=== PATIENT | female | born 1950 | race Caucasian/White ===

== ENCOUNTER 2018-04-19 13:00 | Emergency (ER) | payer MEDICARE ==
[~2018-04-19] VITALS: Ht 157.5 cm; Wt 72.6 kg
[~2018-04-19 13:00] MED LIST: AMLODIPINE BESYL5 MG PO; ASPIRIN81 MG PO; ATORVASTATIN CA20 MG PO; CLOPIDOGREL75 MG PO; GLYBURIDE-METF1 EACH PO; HUMALOG100 UNIT/1 SQ; KEPPRA500 MG PO; LANTUS100 UNITS/ SQ; LEVOTHYROXINE50 MCG PO; LISINOPRIL10 MG PO; PAROXETINE HCL40 MG PO; WARFARIN SODIUM4 MG PO
--- OUTSIDE RECORDS SUMMARY | 2018-04-19 13:03 | XMS REPORT | Clinical Summary ---
Author Author MARTIN [facility] Organization [facility] Address Unknown Phone Unavailable Care Team Providers Care Vascular Technologist Name Role Phone Ramiro Chacon MD PCP Unavailable Jorge Guillory Unavailable Allergies Comments Active Allergy Reactions Severity Noted Date Ofloxacin 03/03/2015 Penicillins 03/03/2015 Medications End Date Status Medication Sig Dispensed Refills Start Date Active amLODIPine (NORVASC) 5 MG Take 2 60 tablet 0 tablet tablets (10 6 mg total) by mouth daily. Active aspirin 81 MG EC tablet Take 1 tablet 30 tablet 0 (81 mg total) 6 by mouth daily. Active atorvastatin (LIPITOR) 80 Take 1 tablet 30 tablet 0 MG tablet (80 mg total) 6 by mouth daily. Active insulin glargine (LANTUS) Inject 36 10 mL 0 100 unit/mL injection Units 6 subcutaneousl y nightly Use as directed. Active insulin lispro (HUMALOG) Inject 8 10 mL 0 100 unit/mL injection Units 6 subcutaneousl y 3 (three) times daily before meals. Active levETIRAcetam (KEPPRA) Take 1 tablet 60 tablet 0 500 MG tablet (500 mg 6 total) by mouth 2 (two) times daily. Active levothyroxine (SYNTHROID, Take 1 tablet 30 tablet 0 LEVOTHROID) 50 MCG tablet (50 mcg 6 total) by mouth daily. Active pantoprazole (PROTONIX) Take 1 tablet 30 tablet 0 40 MG tablet (40 mg total) 6 by mouth daily. Active PARoxetine (PAXIL) 40 MG Take 1 tablet 30 tablet 0 tablet (40 mg total) 6 by mouth every morning. Active warfarin (COUMADIN) 5 MG Take 1 tablet 30 tablet 0 tablet (5 mg total) 6 by mouth daily. Active Problems Problem Noted Date MR (mitral regurgitation) 01/03/2016 Mitral valve disease, rheumatic 01/03/2016 Essential hypertension 12/29/2015 Coronary artery disease involving [place] coronary artery of [place] heart 12/29/2015 without angina pectoris Severe mitral valve stenosis 12/15/2015 Seizure disorder 12/15/2015 Type 2 diabetes mellitus with complication 12/15/2015 CAD in [place] artery 12/15/2015 Factor V Leiden mutation (HCC), H/O 03/03/2015 CKD (chronic kidney disease) stage 2, GFR 60-89 ml/min, H/O 03/03/2015 Microcytic hypochromic anemia 03/03/2015 ALEJANDRO (obstructive sleep apnea), H/O 03/03/2015 Vascular dementia, H/O 03/03/2015 Cerebral infarction 03/03/2015 Overview: UPDATED BY ICD10 SNOMED/IMO UPDATES Hemiplegia 03/03/2015 Overview: UPDATED BY ICD10 SNOMED/IMO UPDATES Rheumatic heart disease, H/O 03/03/2015 Moderate to severe mitral stenosis per 2012 Echo, H/O 03/03/2015 Diabetes mellitus 03/03/2015 Hematoma from Coumadin, H/O 03/03/2015 Hypothyroidism, H/O 03/03/2015 Expressive aphasia, H/O 03/03/2015 Anemia 03/03/2015 Family History Medical History Relation Name Comments Diabetes Brother Diabetes Brother Diabetes Brother Diabetes Brother Diabetes Father Diabetes Sister Diabetes Sister Relation Name Status Comments Brother Brother Brother Brother Father Sister Sister Social History Date Tobacco Use Types Packs/Day Years Used Quit: 06/10/2011 Former Smoker Alcohol Use Drinks/Week oz/Week Comments No Sex Assigned at Date Recorded Not on file Industry Job Start Date Occupation Not on file Not on file Not on file Travel End Travel History Travel Start No recent travel history available. Last Filed Vital Signs Not on file Plan of Treatment Health Maintenance Due Date Last Done Comments INFLUENZA VACCINE 03/03/2018 Implants Device Identifier Shelf Expiration Date Model / Serial / Lot Implanted Type Area Manufactur er 08/31/2020 08.501.001.20S / / [id number] Sternal Zipfix Ndl Strl Cardiovasc N/A: Sternum SYNTHES:SY 08.501.001.20s - [id number] ular NTHES [place] Implanted: Qty: 1 on 01/03/2016 by Sami Waters MD 02/29/2020 [id number] / / [id number] Patch Vasc [place] 1.65mm 1x6in Graft/Patc N/A: Chest CR 346004 - [id number] BARD:PERIP Implanted: Qty: 1 on 01/03/2016 by HERAL Sami Wang MD 11/30/2018 [id number] / [id number] / Valve Mitrl Epic 27mm [id number] - Valves N/A: Heart ST [facility]Z [id number] MED:CARDIA Implanted: Qty: 1 on 01/03/2016 by C SURG Sami Waters MD Results Not on fileafter 04/18/2017 Insurance Payer Benefit Subscriber ID Type Phone Address Plan / [facility] Advance Directives For more information, please contact: [facility] [address] [place] [phone] Date Inactivated Comments Code Status Date Activated 02/02/2016 2:17 PM Full Code 01/12/2016 3:27 PM This code status was determined by: Patient 01/12/2016 3:27 PM Full Code 01/03/2016 11:32 AM This code status was determined by: Patient 12/30/2015 4:25 AM Full Code 12/29/2015 11:40 AM This code status was determined by: Patient 12/15/2015 8:39 PM Full Code 12/15/2015 3:45 PM This code status was determined by: Patient 03/09/2015 6:02 PM Full Code 03/03/2015 7:15 PM This code status was determined by: Patient
[2018-04-19 13:48] VITALS: BP 145/64
== END 2018-04-19 13:57 | disposition home or self-care (01) ==
LOC: FSED 13:00
DX: H60.93 Unspecified otitis externa, bilateral (principal); J02.0 Streptococcal pharyngitis; I10 Essential (primary) hypertension; Z87.891 Personal history of nicotine dependence
CPT/HCPCS: 83518; 99282

== ENCOUNTER 2018-10-04 22:08 | Emergency (ER) | payer MEDICARE ==
[~2018-10-04] VITALS: Ht 162.6 cm; Wt 72.6 kg
--- OUTSIDE RECORDS SUMMARY | 2018-10-04 22:11 | XMS REPORT | Clinical Summary ---
Author Author MARTIN [facility] Organization [facility] Address Unknown Phone Unavailable Care Team Providers Care Teacher'S Aide Name Role Phone Ramiro Chacon MD PCP [...] Essential hypertension 12/29/2015 Coronary artery disease involving [place] coronary artery of [place] heart 12/29/2015 without angina pectoris Severe mitral valve stenosis 12/15/2015 Seizure disorder 12/15/2015 Type 2 diabetes mellitus with complication 12/15/2015 CAD in [place] artery 12/15/2015 Factor V Leiden mutation (HCC), [...] Signs Not on file Plan of Treatment Not on file Implants Device Identifier Shelf Expiration Date Model / Serial / Lot Implanted Type Area Manufactur er 08/31/2020 08.501.001.20S / / [id number] Sternal Zipfix Ndl Strl Cardiovasc N/A: Sternum SYNTHES:SY 08.501.001.20s - [id number] ular NTHES [place] Implanted: Qty: 1 on 01/03/2016 by Sami Waters Jr., MD 02/29/2020 [id number] / / [id number] Patch Vasc [place] 1.65mm 1x6in Graft/Patc N/A: Chest CR 282177 - [id number] BARD:PERIP Implanted: Qty: 1 on 01/03/2016 by HERAL Sami Wang Jr., MD 11/30/2018 [id number] / [id number] / Valve Mitrl Epic 27mm [id number] - Valves N/A: Heart ST LUZ [id number] MED:CARDIA Implanted: Qty: 1 on 01/03/2016 by Sami Ayers Jr., MD Results Not on fileafter 10/03/2017 Insurance Payer Benefit Subscriber ID Type Phone Address Plan / Group [facility] xxxxxxxxxxx MEDICARE ADV Advance Directives For more information, please contact: [facility] [address] [place] [address] Date Inactivated Comments Code Status Date [...]
--- NOTE | 2018-10-04 23:38 | Diagnostic Imaging Report ---
Examination: CT C-SPINE W/O - HOPD HISTORY:Neck injury after fall. COMPARISON:None. TECHNIQUE: Multidetector helical axial images were obtained without contrast from the foramen magnum to T1. Coronal and sagittal reformatted images were done. Bone and soft tissue windows were evaluated. Dose modulation, iterative reconstruction, and/or weight based adjustment of the mA/kV was utilized to reduce the radiation dose to as low as reasonably achievable. FINDINGS: Alignment:Normal alignment and lordosis. Vertebrae: Normal height and density. No acute fracture, infection or neoplasm. Disc space heights: Normal height. Caliber of spinal canal: Developmentally normal. Posterior fossa and craniocervical junction: Foramen magnum patent. No Chiari 1 malformation. Degenerative changes: No herniation or canal stenosis. Visualized lung apices: No abnormalities. IMPRESSION: No acute abnormalities. Signed by: Dr. Binta Childress M.D. on 10/04/2018 11:35 PM
--- NOTE | 2018-10-05 00:03 | Diagnostic Imaging Report ---
HIP 2 VW WITH PELVIS RT - HOPD - 3 views HISTORY: Pain COMPARISON: None available. FINDINGS: Limited by body habitus. No acute fracture or dislocation of the right hip. Vascular calcifications. Core soft tissue calcification projecting over the soft tissues of the lateral right lower abdomen. IMPRESSION: No acute radiographic abnormality. Signed by: Dr. Antonio Escoto MD on 10/05/2018 12:00 AM
--- NOTE | 2018-10-05 00:06 | Diagnostic Imaging Report ---
HAND 3 VIEW RT - HOPD - 3 views HISTORY: Pain COMPARISON: None available. FINDINGS: Bones: Generalized demineralization. No acute displaced fracture. Osseous alignment is within normal limits. Joints: The joint spaces are well-maintained. Soft tissues: The soft tissues appear unremarkable. Vascular calcifications. IMPRESSION: No acute radiographic abnormality. Signed by: Dr. Antonio Escoto MD on 10/05/2018 12:02 AM
== END 2018-10-05 00:26 | disposition home or self-care (01) ==
LOC: FSED 22:08
DX: M54.2 Cervicalgia (principal); S16.1XXA Strain of muscle, fascia and tendon at neck level, initial encounter; S60.221A Contusion of right hand, initial encounter; M25.551 Pain in right hip; W18.2XXA Fall in (into) shower or empty bathtub, initial encounter; Y93.E1 Activity, personal bathing and showering; Y92.002 Bathroom of unspecified non-institutional (private) residence as the place of occurrence of the external cause
CPT/HCPCS: 72125; 99283